=== PATIENT | female | born 1980 | race Caucasian/White ===

== ENCOUNTER → 2018-02-14 | Outpatient (CLI) | payer OTHER ==
--- NOTE | 2018-02-17 10:54 | Pulmonary Function Test ---
Pulmonary Function Test Date of Procedure:: 02/14/18 INDICATION:: Dyspnea Referring Provider: Dr. Gil Polisher Balance Screwhead: Mary Grace Quiroz [employer] - Report Spirometry: FVC 4.04 L 117% FEV1 3.09 L 106% FEV1/FVC % 77 predicted 86 FEF 25-75% 3.07 L 90% Impression: Normal spirometry
== END ==
LOC: RT 10:24
PROVIDERS: ATTEND General Practice
DX: J98.01 Acute bronchospasm (principal)
CPT/HCPCS: 94010